=== PATIENT | female | born 1955 | race Caucasian/White ===

== ENCOUNTER 2021-05-09 18:44 | Emergency (ER) | payer MEDICAID, OTHER ==
[~2021-05-09] VITALS: Ht 165.1 cm; Wt 74.8 kg
[~2021-05-09 18:44] MED LIST: ADVIL
--- NOTE | 2021-05-09 19:05 | NUR ---
PT AMBULATED TO BED 11.
[2021-05-09 19:17] VITALS: BP 205/114
[2021-05-09] MEDS ORDERED: ENALAPRIL 10 MG TAB PO ONE (19:25)
[2021-05-09] MEDS ORDERED: CHLO25TA33 PO (20:00)
[2021-05-09] MEDS ORDERED: CIPR500T4 PO (20:00)
--- NOTE | 2021-05-09 20:13 | NUR ---
Patient discharged with v/s stable. Written and verbal after care instructions given and explained. Patient verbalized understanding. Ambulatory with steady gait. All questions addressed prior to discharge. Advised to follow up with PMD.
[2021-05-09 20:14] VITALS: BP 179/87
== END 2021-05-09 20:13 | disposition home or self-care (01) ==
LOC: MED 18:44
DX: I10 Essential (primary) hypertension (principal); N39.0 Urinary tract infection, site not specified; R60.0 Localized edema; Z90.49 Acquired absence of other specified parts of digestive tract
CPT/HCPCS: 81002; 99283

== ENCOUNTER 2023-07-15 15:56 | Inpatient (IN) | payer MEDICAID ==
[~2023-07-15] VITALS: Ht 167.6 cm; Wt 77.1 kg
[~2023-07-15 15:56] MED LIST changes: +CHLO25TA33 PO; +CIPR500T4 PO
[2023-07-15 16:04] VITALS: BP 154/86; PULSE 99; RESP 20; TEMP 98.5; O2SAT 97
[2023-07-15 18:36] LABS: BASOPHILS # (AUTO) 0.1 K/uL (0.00-0.22); BASOPHILS % (AUTO) 0.9 % (0.0-2.0); EOSINOPHILS # (AUTO) 0.2 K/uL (0-0.4); EOSINOPHILS % (AUTO) 2.3 % (0.0-4.0); HEMATOCRIT 37.1 % (36-48); HEMOGLOBIN 12.7 g/dL (12.0-16.0); LYMPHOCYTES # (AUTO) 3.1 K/uL (2.5-16.5); LYMPHOCYTES % (AUTO) 30.8 % (20.5-51.1); MEAN CORPUSCULAR HEMOGLOBIN 32 pg (27-31); MEAN CORPUSCULAR HGB CONC 34 g/dL (33-37); MEAN CORPUSCULAR VOLUME 92.6 fL (80-94); MONOCYTES # (AUTO) 0.5 K/uL (0.8-1.0); MONOCYTES % (AUTO) 4.7 % (1.7-9.3); NEUTROPHILS # (AUTO) 6.2 K/uL (1.8-7.7); NEUTROPHILS % (AUTO) 61.3 % (42.2-75.2); PLATELET COUNT (AUTO) 246 K/uL (140-450); RED CELL DISTRIBUTION WIDTH 12.7 % (11.6-13.7); WHITE BLOOD COUNT (AUTO) 10.2 K/uL (4.8-10.8)
[2023-07-15 18:46] LABS: CALCIUM 9.4 mg/dL (8.5-10.1); CARBON DIOXIDE 28.6 mmol/L (21-32); CREATININE 0.8 mg/dL (0.6-1.3); POTASSIUM 3.6 mmol/L (3.5-5.1)
[2023-07-15 18:52] LABS: INR 0.9 (0.8-1.2); PARTIAL THROMBOPLASTIN TIME 24.4 secs (22-35.6); PROTHROMBIN TIME 9.5 secs (10.8-13.4)
[2023-07-15] MEDS ORDERED: CLOPIDOGREL 75 MG TAB PO ONE (19:25)
[2023-07-15] MEDS ORDERED: ASPIRIN 81 MG TAB.CHEW PO ONE (19:25)
[2023-07-15 20:24] LABS: APPEARANCE,URINE CLEAR (CLEAR); BILIRUBIN,URINE NEGATIVE (NEGATIVE); BLOOD, URINE NEGATIVE (NEGATIVE); COLOR,URINE YELLOW (YELLOW); LEUKOCYTE ESTERASE ,URINE NEGATIVE (NEGATIVE); NITRITE, URINE NEGATIVE (NEGATIVE); PROTEIN,URINE NEGATIVE (NEGATIVE); UGLUCOSE NEGATIVE (NEGATIVE); UROBILINOGEN,URINE 0.2 EU/dL (0.2 - 1)
[2023-07-15] MEDS ORDERED: METF-1139 PO (21:13)
[2023-07-15] MEDS ORDERED: HYDR12.51 PO (21:13)
[2023-07-15] MEDS ORDERED: TRAZ-343 PO (21:13)
[2023-07-15] MEDS ORDERED: LISI-487 PO (21:13)
[2023-07-15] MEDS ORDERED: GABA100C PO (21:13)
[2023-07-15] MEDS ORDERED: ATOR20TA PO (21:13)
[2023-07-16] MEDS ORDERED: DEXTROSE 50% 50 ML SYR IVP PRN (07:20)
[2023-07-16] MEDS ORDERED: INSULIN LISPRO SLIDING SCALE 100 UNITS/ML VIAL SUBQ PRN (07:20)
[2023-07-16] MEDS: BLOOD GLUCOSE MONITORING 1 DEV DEV FS SCH ×4 (07:30→21:24)
[2023-07-16 07:51] LABS: BASOPHILS # (AUTO) 0.1 K/uL (0.00-0.22); BASOPHILS % (AUTO) 1.3 % (0.0-2.0); EOSINOPHILS # (AUTO) 0.2 K/uL (0-0.4); EOSINOPHILS % (AUTO) 2.3 % (0.0-4.0); HEMATOCRIT 38.8 % (36-48); HEMOGLOBIN 13.3 g/dL (12.0-16.0); LYMPHOCYTES # (AUTO) 2.7 K/uL (2.5-16.5); LYMPHOCYTES % (AUTO) 33.7 % (20.5-51.1); MEAN CORPUSCULAR HEMOGLOBIN 32 pg (27-31); MEAN CORPUSCULAR HGB CONC 34 g/dL (33-37); MEAN CORPUSCULAR VOLUME 92.9 fL (80-94); MONOCYTES # (AUTO) 0.4 K/uL (0.8-1.0); MONOCYTES % (AUTO) 4.5 % (1.7-9.3); NEUTROPHILS # (AUTO) 4.6 K/uL (1.8-7.7); NEUTROPHILS % (AUTO) 58.2 % (42.2-75.2); PLATELET COUNT (AUTO) 233 K/uL (140-450); RED BLOOD CELL COUNT(AUTO) 4.18 MIL/uL (4.20-5.40); RED CELL DISTRIBUTION WIDTH 12.8 % (11.6-13.7); WHITE BLOOD COUNT (AUTO) 7.9 K/uL (4.8-10.8)
[2023-07-16 08:25] LABS: ANION GAP 11.7 (8-16); CALCIUM 9.3 mg/dL (8.5-10.1); CARBON DIOXIDE 29.1 mmol/L (21-32); CREATININE 0.8 mg/dL (0.6-1.3); POTASSIUM 3.8 mmol/L (3.5-5.1)
[2023-07-16] MEDS ORDERED: ATORVASTATIN 20 MG TAB PO SCH ×2 (09:00→21:00)
[2023-07-16] MEDS: ASPIRIN 81 MG TAB.CHEW PO SCH (09:12)
[2023-07-16] MEDS: CLOPIDOGREL 75 MG TAB PO SCH (09:18)
[2023-07-16] MEDS ORDERED: traZODone 50 MG TAB PO PRN (11:15)
[2023-07-16 20:37] VITALS: BP 126/84; PULSE 87; RESP 17; TEMP 98; O2SAT 97
[2023-07-16 22:00] VITALS: PULSE 87; RESP 17; O2SAT 97
[2023-07-17] VITALS: BP 139/70; PULSE 75; PULSE 87; RESP 18; TEMP 98.5; O2SAT 99
[2023-07-17 04:00] VITALS: BP 130/75; PULSE 100; PULSE 95; RESP 18; TEMP 97.5; O2SAT 98
[2023-07-17 05:27] LABS: BASOPHILS # (AUTO) 0.1 K/uL (0.00-0.22); BASOPHILS % (AUTO) 0.9 % (0.0-2.0); EOSINOPHILS # (AUTO) 0.3 K/uL (0-0.4); EOSINOPHILS % (AUTO) 3.2 % (0.0-4.0); HEMATOCRIT 38.2 % (36-48); HEMOGLOBIN 13.2 g/dL (12.0-16.0); LYMPHOCYTES # (AUTO) 3.1 K/uL (2.5-16.5); LYMPHOCYTES % (AUTO) 36.2 % (20.5-51.1); MEAN CORPUSCULAR HEMOGLOBIN 32 pg (27-31); MEAN CORPUSCULAR HGB CONC 35 g/dL (33-37); MEAN CORPUSCULAR VOLUME 92.8 fL (80-94); MONOCYTES # (AUTO) 0.4 K/uL (0.8-1.0); MONOCYTES % (AUTO) 4.7 % (1.7-9.3); NEUTROPHILS # (AUTO) 4.7 K/uL (1.8-7.7); PLATELET COUNT (AUTO) 248 K/uL (140-450); RED BLOOD CELL COUNT(AUTO) 4.12 MIL/uL (4.20-5.40); WHITE BLOOD COUNT (AUTO) 8.5 K/uL (4.8-10.8)
[2023-07-17 07:11] LABS: AMPHETAMINE, URINE NEGATIVE ng/ml (NEG <=1000); BARBITURATE, URINE NEGATIVE ng/ml (NEG <=200); BENZODIAZEPINE, URINE NEGATIVE ng/mL (NEG <=200); CANNABINOID, URINE NEGATIVE ng/mL (NEG <=50); COCAINE, URINE NEGATIVE ng/mL (NEG <=300); OPIATE, URINE NEGATIVE ng/mL (NEG <=2000); PHENCYCLIDINE SCREEN,URINE NEGATIVE ng/mL (NEG <=25)
[2023-07-17 08:00] VITALS: BP 127/70; PULSE 80; PULSE 82; RESP 18; TEMP 97.1; O2SAT 100
[2023-07-17 08:00] LABS: ALBUMIN 3.1 g/dL (3.4-5.0); ANION GAP 12.9 (8-16); CALCIUM 9.3 mg/dL (8.5-10.1); CARBON DIOXIDE 27.9 mmol/L (21-32); CREATININE 0.8 mg/dL (0.6-1.3); POTASSIUM 3.8 mmol/L (3.5-5.1); TOTAL BILIRUBIN 0.8 mg/dL (0.0-1.0); TOTAL PROTEIN, SERUM 7.2 g/dL (6.4-8.2)
[2023-07-17] MEDS: ASPIRIN 81 MG TAB.CHEW PO SCH (08:52)
[2023-07-17] MEDS: CLOPIDOGREL 75 MG TAB PO SCH (08:53)
[2023-07-17] MEDS: BLOOD GLUCOSE MONITORING 1 DEV DEV FS SCH ×2 (08:55→11:30)
[2023-07-17] MEDS ORDERED: ATORVASTATIN 80 MG TAB PO SCH (09:00)
[2023-07-17 10:32] VITALS: O2SAT 100
[2023-07-17] MEDS ORDERED: CLOP75TA55 PO (11:10)
[2023-07-17] MEDS ORDERED: ATOR20TA40 PO (11:10)
[2023-07-17] MEDS ORDERED: ASPI81CT95 PO (11:10)
[2023-07-17 12:00] VITALS: BP 131/70; PULSE 73; PULSE 75; RESP 18; TEMP 97.5; O2SAT 98
== END 2023-07-17 13:50 | disposition home or self-care (01) | DRG 45 ==
LOC: MED 15:56 → MTU 20:42
PROVIDERS: ADMIT Family Medicine; ATTEND Family Medicine
DX: I63.9 Cerebral infarction, unspecified (principal); E44.0 Moderate protein-calorie malnutrition; G45.9 Transient cerebral ischemic attack, unspecified; E11.9 Type 2 diabetes mellitus without complications; R29.702 NIHSS score 2; I10 Essential (primary) hypertension; R20.0 Anesthesia of skin; Z90.49 Acquired absence of other specified parts of digestive tract; Z90.710 Acquired absence of both cervix and uterus; Z68.27 Body mass index [BMI] 27.0-27.9, adult
CPT/HCPCS: 36415; 70450; 71045; 80048; 80053; 80305; 81003; 82948; 83036; 84484; 85025; 85610; 85730; 86886; 86900; 86901; 87081; 93005; 99285; Q9967